=== PATIENT | female | born 1990 | race Asian ===

== ENCOUNTER → 2022-12-16 08:34 | Outpatient (CLI) | payer OTHER, MEDICAID, SELFPAY ==
[2022-12-16 10:13] LABS: Add Manual Diff / Slide Review NO; Basophils Absolute Auto 0 /uL (0-100); Basophils Percent Auto 0.4 % (0-2); Eosinophils Absolute Auto 200 /uL (0-450); Eosinophils Percent Auto 2.2 % (2-4); Hematocrit 42.6 % (36-46); Hemoglobin 14.3 g/dL (12.0-16.0); Lymphocytes Absolute Auto 1900 /uL (1100-4500); Lymphocytes Percent Auto 22.7 % (25-40); Mean Corpuscular HGB Conc 33.5 % (30-36); Mean Corpuscular Hemoglobin 29.2 PG (26-34); Mean Corpuscular Volume 87.3 fL (80-100); Monocytes Absolute Auto 600 /uL (0-900); Monocytes Percent Auto 6.6 % (3-14); Neutrophils Absolute Auto 5700 /uL (1500-7000); Neutrophils Percent Auto 68.1 % (50-75); Platelet Count 306 X10^3/uL (150-400); Red Blood Cell Count 4.88 X10^6/uL (4.0-5.2); White Blood Cell Count 8.4 X10^3/uL (4.5-11.0)
[2022-12-16 14:03] LABS: Hepatitis B Surface Antigen NEGATIVE s/c (NEGATIVE)
[2022-12-16 14:20] LABS: HIV 1 & 2 Ab/Ag 4th Gen Combo NEGATIVE (NEGATIVE); Hep C Virus Ab w/Reflex Quant NEGATIVE s/c (NEGATIVE)
[2022-12-17 02:57] LABS: x Labcorp Estim. Avg Glu (eAG) 114 mg/dL (.); x Labcorp Hemoglobin A1c 5.6 % (4.8-5.6)
[2022-12-17 10:34] LABS: Varicella IgG Antibody <135 index (Immune >165)
[2022-12-18 06:32] LABS: RPR Screen Non Reactive (Non Reactive)
== END ==
PROVIDERS: Referring Provider Specialist; Visit Provider Specialist
DX: Z34.00 Encounter for supervision of normal first pregnancy, unspecified trimester (principal)
CPT/HCPCS: 36415; 80055; 83036; 86787; 86803; 86850; 86900; 86901; 87086; 87389; 87491; 87591

== ENCOUNTER → 2023-01-29 09:47 | Outpatient (CLI) | payer OTHER, MEDICAID, SELFPAY ==
[2023-02-03 12:40] LABS: AFP, Serum 35.8 ng/mL (.); Inhibin A, Dimeric 89.15 pg/mL (.); Inhibin A, MoM 0.64 (.); Maternal Weight 173 lbs (.); Number of Fetuses No (.); OSBR Risk 1 IN 10000 (.); Results Report (.); Test Results *Screen Negative* (.); hCG, MoM 0.51 (.); hCG, Serum 17725 mIU/mL (.)
== END ==
PROVIDERS: Referring Provider Family Medicine; Visit Provider Family Medicine
DX: Z34.02 Encounter for supervision of normal first pregnancy, second trimester (principal); Z3A.17 17 weeks gestation of pregnancy
CPT/HCPCS: 36415; 82105; 82677; 84702; 86336

== ENCOUNTER → 2023-03-26 10:57 | Outpatient (CLI) | payer OTHER, MEDICAID, SELFPAY ==
[2023-03-26 13:43] LABS: Add Manual Diff / Slide Review NO; Basophils Absolute Auto 0 /uL (0-100); Basophils Percent Auto 0.3 % (0-2); Eosinophils Absolute Auto 100 /uL (0-450); Eosinophils Percent Auto 1.5 % (2-4); Hematocrit 39.4 % (36-46); Hemoglobin 13.2 g/dL (12.0-16.0); Lymphocytes Absolute Auto 2300 /uL (1100-4500); Lymphocytes Percent Auto 26.1 % (25-40); Mean Corpuscular HGB Conc 33.4 % (30-36); Mean Corpuscular Hemoglobin 29.4 PG (26-34); Monocytes Absolute Auto 500 /uL (0-900); Monocytes Percent Auto 5.2 % (3-14); Neutrophils Absolute Auto 6000 /uL (1500-7000); Neutrophils Percent Auto 66.9 % (50-75); Platelet Count 310 X10^3/uL (150-400); Red Blood Cell Count 4.48 X10^6/uL (4.0-5.2); Red Cell Distribution Width 13.7 % (11.6-14.8); White Blood Cell Count 8.9 X10^3/uL (4.5-11.0)
[2023-03-26 14:12] LABS: BUN Creatinine Ratio 7.8 (6-22); Blood Urea Nitrogen 4 mg/dL (7-17); Calcium 9.2 mg/dL (8.4-10.2); Carbon Dioxide 23 mmol/L (22-32); Chloride 105 mmol/L (98-107); Estimated Glomerular Filt Rate > 60 mL/min (>60); GTT (PREG) 1 Hour PP 50gm Dose 138 mg/dL (76-139); Glucose 138 mg/dL (70-100); HEMOLYSIS < 15 (0-50); Potassium 3.6 mmol/L (3.4-5.1); Sodium 136 mmol/L (137-145)
[2023-04-03 13:10] LABS: Total Bile Acids 1.1 umol/L (.); Ursodeoxycholic Acids <0.10 umol/L (.)
== END ==
PROVIDERS: Referring Provider Family Medicine; Visit Provider Family Medicine
DX: R73.03 Prediabetes (principal); D50.9 Iron deficiency anemia, unspecified; E66.9 Obesity, unspecified; Z34.00 Encounter for supervision of normal first pregnancy, unspecified trimester
CPT/HCPCS: 36415; 80048; 82542; 82950; 85025

== ENCOUNTER → 2023-05-28 10:43 | Outpatient (CLI) | payer OTHER, MEDICAID, SELFPAY ==
[2023-05-28 13:55] LABS: COVID-19 CEPHEID 4-PLEX PCR Negative (Negative); Influenza A - CEPHEID Flu A NEGATIVE (NEGATIVE); Influenza B - CEPHEID Flu B NEGATIVE (NEGATIVE); Respiratory Syncytial Virus Negative (Negative)
[2023-05-28 17:06] LABS: Creatinine Urine Random 33.9 mg/dL; Protein (Total) Urine Random 20 mg/dL (0-12); Protein Creatinine Ratio Urine 0.58 GRAM/24H
== END ==
PROVIDERS: PCP Family Medicine; Visit Provider Family Medicine
DX: O16.3 Unspecified maternal hypertension, third trimester (principal); O99.891 Other specified diseases and conditions complicating pregnancy; R05.9 Cough, unspecified
CPT/HCPCS: 0241U; 82570; 84156

== ENCOUNTER → 2023-05-28 10:48 | Outpatient (CLI) | payer OTHER, MEDICAID, SELFPAY ==
[2023-05-28 11:57] LABS: Add Manual Diff / Slide Review NO; Basophils Absolute Auto 0 /uL (0-100); Basophils Percent Auto 0.3 % (0-2); Eosinophils Absolute Auto 100 /uL (0-450); Eosinophils Percent Auto 1.4 % (2-4); Hemoglobin 12.7 g/dL (12.0-16.0); Lymphocytes Absolute Auto 1600 /uL (1100-4500); Lymphocytes Percent Auto 14.9 % (25-40); Mean Corpuscular HGB Conc 33.4 % (30-36); Mean Corpuscular Hemoglobin 29.6 PG (26-34); Mean Corpuscular Volume 88.6 fL (80-100); Monocytes Absolute Auto 700 /uL (0-900); Monocytes Percent Auto 6.2 % (3-14); Neutrophils Absolute Auto 8300 /uL (1500-7000); Neutrophils Percent Auto 77.2 % (50-75); Platelet Count 309 X10^3/uL (150-400); Red Blood Cell Count 4.29 X10^6/uL (4.0-5.2); Red Cell Distribution Width 13.3 % (11.6-14.8); White Blood Cell Count 10.8 X10^3/uL (4.5-11.0)
[2023-05-28 12:11] LABS: Alanine Aminotransferase 15 IU/L (<35); Albumin 3.5 g/dL (3.5-5.0); Albumin Globulin Ratio 0.9 (1.0-2.8); Alkaline Phosphatase 90 U/L (38-126); Aspartate Aminotransferase 20 IU/L (14-36); BUN Creatinine Ratio 11.1 (6-22); Bilirubin Total 0.6 mg/dL (0.2-1.3); Blood Urea Nitrogen 5 mg/dL (7-17); Calcium 9.2 mg/dL (8.4-10.2); Carbon Dioxide 23 mmol/L (22-32); Chloride 107 mmol/L (98-107); Estimated Glomerular Filt Rate > 60 mL/min (>60); Globulin 3.8 g/dL (1.7-4.1); Glucose 100 mg/dL (70-100); HEMOLYSIS < 15 (0-50); Potassium 2.9 mmol/L (3.4-5.1); Sodium 137 mmol/L (137-145); Total Protein 7.3 g/dL (6.3-8.2)
== END ==
PROVIDERS: PCP Family Medicine; Referring Provider Family Medicine; Visit Provider Family Medicine
DX: O09.893 Supervision of other high risk pregnancies, third trimester (principal); O16.3 Unspecified maternal hypertension, third trimester; O99.891 Other specified diseases and conditions complicating pregnancy; R73.03 Prediabetes; O99.013 Anemia complicating pregnancy, third trimester; D50.9 Iron deficiency anemia, unspecified; Z28.39 Other underimmunization status
CPT/HCPCS: 0241U; 36415; 80053; 82570; 84156; 85025

== ENCOUNTER → 2023-06-11 10:37 | Outpatient (CLI) | payer OTHER, MEDICAID, SELFPAY ==
[2023-06-12 08:43] LABS: Strep Grp B PCR NEG for Grp B Strep
== END ==
PROVIDERS: PCP Family Medicine; Visit Provider Family Medicine
DX: O16.3 Unspecified maternal hypertension, third trimester (principal)
CPT/HCPCS: 87653

== ENCOUNTER 2023-06-11 11:02 | Observation (INO) | payer OTHER, MEDICAID, SELFPAY ==
[2023-06-11 11:46] LABS: Add Manual Diff / Slide Review NO; Basophils Absolute Auto 0 /uL (0-100); Basophils Percent Auto 0.5 % (0-2); Eosinophils Absolute Auto 100 /uL (0-450); Eosinophils Percent Auto 1.6 % (2-4); Hematocrit 39.7 % (36-46); Hemoglobin 13.3 g/dL (12.0-16.0); Lymphocytes Absolute Auto 1800 /uL (1100-4500); Lymphocytes Percent Auto 21.1 % (25-40); Mean Corpuscular HGB Conc 33.4 % (30-36); Mean Corpuscular Hemoglobin 29.4 PG (26-34); Monocytes Absolute Auto 500 /uL (0-900); Monocytes Percent Auto 6.1 % (3-14); Neutrophils Absolute Auto 5900 /uL (1500-7000); Neutrophils Percent Auto 70.7 % (50-75); Platelet Count 306 X10^3/uL (150-400); Red Blood Cell Count 4.52 X10^6/uL (4.0-5.2); Red Cell Distribution Width 13.3 % (11.6-14.8); White Blood Cell Count 8.4 X10^3/uL (4.5-11.0)
[2023-06-11 11:58] LABS: Aspartate Aminotransferase 27 IU/L (14-36); BUN Creatinine Ratio 8.9 (6-22); Blood Urea Nitrogen 4 mg/dL (7-17); Estimated Glomerular Filt Rate > 60 mL/min (>60); Uric Acid 5.5 mg/dL (2.5-6.2)
[2023-06-11 15:37] LABS: Protein (Total) Urine Random 23 mg/dL (0-12); Protein Creatinine Ratio Urine 0.43 GRAM/24H
== END 2023-06-11 13:15 | disposition home or self-care (01) ==
PROVIDERS: Admitting Provider Family Medicine; PCP Family Medicine; Referring Provider Family Medicine; Visit Provider Family Medicine
DX: O47.03 False labor before 37 completed weeks of gestation, third trimester (principal); Z3A.36 36 weeks gestation of pregnancy; O16.3 Unspecified maternal hypertension, third trimester
CPT/HCPCS: 36415; 59025; 82570; 84156; 84450; 84550; 85025; 87653; G0378; G0379

== ENCOUNTER → 2023-06-16 15:10 | Outpatient (CLI) | payer OTHER, MEDICAID, SELFPAY ==
--- NOTE | 2023-06-16 15:11 | DI.US.S_ITS ---
PROCEDURE: US OB LIMITED INDICATIONS: growth, presentation, placenta location, BREE OUTSIDE/PRIOR DATING DATA: Last menstrual period (LMP): 10/01/2022. LMP-based estimated date of delivery (LESLIE): 07/08/2023. First dating scan (date and location): 12/16/2022. Estimated date of delivery (LESLIE) from first dating scan: Not available. The calculations are made using the working LESLIE of 07/08/2023. TECHNIQUE: Real-time scanning was performed of the fetus, with image documentation and biometric measurements. Biophysical profile was also obtained. COMPARISON: US, US OB <= 14 WEEKS FETUS, 12/16/2022, 8:22. FINDINGS: General: A single living intrauterine gestation is present. Presentation: Vertex. Placenta: Placental position is posterior , without previa. Amniotic fluid index: 12.3 cm, normal range is 5-24 cm. Single deepest vertical pocket is 4.3 cm. heart rate: 150 beats per minute. Maternal cervical canal: Not visualized. biometrics: Biparietal diameter: 36 weeks 0 day Head circumference: 35 weeks 1 day Abdominal circumference: 36 weeks 3 days Femur length: 34 weeks 5 days Clinically estimated gestational age: 36 weeks 6 days Composite gestational age from present scan: 35 weeks 4 days Estimated weight and percentile: 2777 g; 28% for gestational age IMPRESSION: 1. A single living intrauterine gestation with interval within normal limits. 2. The estimated weight is 28% for gestational age. 3. Normal BREE. 4. Fetus in vertex presentation. We strive to produce accurate, complete, and clear reports of imaging services. To assist us in improving patient care, this report was composed using standard report templates and voice recognition software. Therefore, it may contain abnormal punctuation, insertions and/or omissions. Occasional wrong-word or sound-alike substitutions may occur. Though we review the report and make efforts to correct it, we do recommend that the report be read carefully in proper context to recognize any text inaccuracies. Measurement variability for biometric dating: +/- 7 days from 14 weeks to 15 weeks 6 days gestation, +/- 10 days from 16 weeks to 21 weeks 6 days gestation, +/- 2 weeks from 22 weeks to 27 weeks 6 days gestation, +/- 3 weeks for 28 weeks gestation or later. weight reference: 4500 g or EFW >90/95% is considered macrosomia or large for gestational age. EFW <10% is small for gestational age. EFW 5% or less is considered intra-uterine growth restriction.>> Dictated by: Denny Lu M.D. on 06/16/2023 at 16:55 Approved by: Denny Lu M.D. on 06/17/2023 at 8:52
== END ==
LOC: US 15:10
PROVIDERS: PCP Family Medicine; Referring Provider Family Medicine; Visit Provider Family Medicine
DX: O14.03 Mild to moderate pre-eclampsia, third trimester (principal); Z3A.35 35 weeks gestation of pregnancy
CPT/HCPCS: 76815

== ENCOUNTER 2023-06-18 16:54 | Inpatient (IN) | payer OTHER, MEDICAID, SELFPAY ==
[2023-06-18 17:39] VITALS: BP 144/87
[2023-06-18 17:46] LABS: Add Manual Diff / Slide Review NO; Basophils Absolute Auto 100 /uL (0-100); Eosinophils Absolute Auto 100 /uL (0-450); Hematocrit 41.8 % (36-46); Hemoglobin 14.1 g/dL (12.0-16.0); Lymphocytes Absolute Auto 2700 /uL (1100-4500); Lymphocytes Percent Auto 27.8 % (25-40); Mean Corpuscular HGB Conc 33.7 % (30-36); Mean Corpuscular Hemoglobin 29.2 PG (26-34); Mean Corpuscular Volume 86.7 fL (80-100); Monocytes Absolute Auto 800 /uL (0-900); Monocytes Percent Auto 8.8 % (3-14); Neutrophils Absolute Auto 5900 /uL (1500-7000); Neutrophils Percent Auto 61.4 % (50-75); Platelet Count 316 X10^3/uL (150-400); Red Blood Cell Count 4.83 X10^6/uL (4.0-5.2); Red Cell Distribution Width 13.8 % (11.6-14.8); White Blood Cell Count 9.6 X10^3/uL (4.5-11.0)
[2023-06-18 18:01] LABS: Alanine Aminotransferase 34 IU/L (<35); Albumin 3.9 g/dL (3.5-5.0); Alkaline Phosphatase 119 U/L (38-126); Aspartate Aminotransferase 34 IU/L (14-36); BUN Creatinine Ratio 13.2 (6-22); Bilirubin Total 0.7 mg/dL (0.2-1.3); Blood Urea Nitrogen 7 mg/dL (7-17); Calcium 9.4 mg/dL (8.4-10.2); Carbon Dioxide 25 mmol/L (22-32); Chloride 104 mmol/L (98-107); Estimated Glomerular Filt Rate > 60 mL/min (>60); Globulin 4.1 g/dL (1.7-4.1); Glucose 92 mg/dL (70-100); HEMOLYSIS < 15 (0-50); Potassium 3.5 mmol/L (3.4-5.1); Sodium 137 mmol/L (137-145)
[2023-06-18] MEDS: miSOPROStoL 25 MCG TABLET VAG (18:30)
[2023-06-18 20:19] VITALS: BP 177/93; PULSE 89
[2023-06-18] MEDS: LABETALOL 20 MG/4 ML SYRINGE IV (20:19)
[2023-06-18 20:34] VITALS: BP 140/76; PULSE 102
[2023-06-18 21:10] VITALS: BP 158/91; PULSE 87
[2023-06-18] MEDS: LABETALOL 100 MG TABLET 200 MG PO (21:10)
[2023-06-18] MEDS: miSOPROStoL 25 MCG TABLET 50 MCG SL (22:35)
--- NOTE | 2023-06-18 22:35 | P.HPOB_ITS ---
OB HPI Date/Time Date of admission: 06/18/23 Date Patient Seen: 06/18/23 Time Patient Seen: 18:35 History of Present Condition Chief complaint: L&D Date of Last Menstrual Period: 10/01/22 LESLIE Calculator 2 Estimated Delivery Date Method Current WG Current Estimate 07/08/23 LMP (Certain) 37w 3d Other Estimates 07/13/23 Ultrasound #1 36w 5d 07/09/23 Ultrasound #2 37w 2d Estimated Gestational Age (weeks): 37+1 : 1 Para: 1 Narrative: 33yo G1 presents for mIOL due to pre-eclampsia w/o severe features. Developed moderate range BP starting at GA 34+1 which have persisted since that time. Denies DOE, vision change, SOB, RUQ pain, edema. Labs notable for urine protein/Cr 0.58, platelets and liver enzymes wnl. also c/b maternal obesity, varicella non-immune status. care: good care Dating criteria OB: LMP confirmed by 1st trimester US Ultrasounds: normal 1st trimester US and normal mid trimester US Obstetrical complications: preeclampsia Medical complications OB: none Indications Indication for induction OB: gestational HTN/pre-eclampsia Preadmission Labs Last OB Lab Results: 2 Blood Type AB Positive 06/18/23 17:20 Antibody Screen Negative 06/18/23 17:20 Hematocrit 35.4 % (36-46) L 06/20/23 07:39 Hemoglobin 11.6 g/dL (12.0-16.0) L 06/20/23 07:39 Hepatitis B Surface Antigen Negative s/c (NEGATIVE) 12/16/22 08 :39 Hepatitis C Antibody Negative s/c (NEGATIVE) 12/16/22 08:39 Rubella Antibody 69.0 IU/mL (>15) 12/16/22 08:39 Varicella-Zoster IgG Antibody <135 index (Immune >165) L 08:39 Glucose 1 Hour 138 mg/dL (76-139) 03/26/23 12:27 Group B Streptococcus (PCR) Neg for grp b strep 06/11/23 10:37 Glucose Tolerance Testin hr -: Chlamydia screen: negative and Gonorrhea screen: negative -: PAP smear: Normal Genetic Screens: Quad screen: Normal Evaluation Evaluation Baseline heart rate: 140 Variability: Moderate (11-25) monitor accelerations: Present Monitor Decelerations: Absent Category of Tracing: Reactive Status: Category l Dilation (cm): 1 Effacement (%): 50 station: -3 Position of cervix: mid Consistency: firm PFSH Surgical History (Updated 12/11/22 @ 14:43 by Maribel Bentley RN) No pertinent past surgical history Family History (Updated 02/25/23 @ 19:33 by Hannah Juni) Father Hypertension Gout Carpal tunnel syndrome Hyperlipidemia Mother Iron deficiency anemia Gout Hypertension GERD (gastroesophageal reflux disease) Grandfather Prostate cancer Grandmother Asthma Lung cancer Grandfather Cancer Prostate cancer Family/Other Gout Hypertension Brother Gout Hypertension Sister Hyperlipidemia Social History marital status: number of children: 0 household members: spouse and family (sister and parents) lives independently: Yes caregiver/support person: No housing: house pets and animals: No education level: college (some college) 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) current occupational exposures/hazards: No special marlyn needs: No travel history: recent (cruise to [place] and [place]) seatbelt use: always water heater temp set < 120 deg: Yes working smoke detector in home: Yes fire extinguisher in home: Yes carbon monox detector in home: Yes firearms in home: Yes firearms unloaded and locked: Yes do you feel safe at home: Yes Smoking Status: Never smoker Tobacco: How many years used: 6 second hand exposure: Yes (father vapes) alcohol intake: former (2-3/week when not ) substance use type: does not use during the past year weight has: remained stable well-balanced diet: daily or most days daily servings fruits/ve or more times/day caffeine: Yes (AM cup coffee) Type(s) of exercise: none Meds Home Medications and Allergies Home Medications Medication Instructions Recorded Confirmed Type calcium carbonate 200 mg calcium 200 mg PO QID PRN Acid Reflux 12/11/22 06/18/23 History (500 mg) chewable tablet (Tums) vit no.95-ferrous 1 tab PO DAILY 12/11/22 06/18/23 History fumarate 28 mg-folic acid 800 mcg tablet ( Multivitamins) labetalol 200 mg tablet 200 mg PO BID #30 tabs 06/20/23 Rx Allergies Allergy/AdvReac Type Severity Reaction Status Date / Time No Known Drug Allergies Allergy Unverified 06/18/23 10:13 Review of Systems Review of Systems ROS: Yes All systems reviewed with the patient and are negative except as otherwise documented OB Exam Narrative Exam Narrative: General: Well-nourished, no distress HEENT: Normocephalic, EOMI, external ears and nose normal appearing, moist membranes CV: RRR, normal S1 S2, no m/g/r Resp: CTAB Abd: Gravid, soft, NTND, +BS Ext: Full ROM, no edema Skin: No rash or lesions Neuro: A&O x3, normal tone, no focal deficits Psych: Appropriate mood and affect Objective Labs 06/20/23 07:39 06/20/23 07:39 Labs: Laboratory Results - last 24 hr 06/18/23 17:20 WBC 9.6 RBC 4.83 Hgb 14.1 Hct 41.8 MCV 86.7 MCH 29.2 MCHC 33.7 RDW 13.8 Plt Count 316 Neut % (Auto) 61.4 Lymph % (Auto) 27.8 [place] % (Auto) 8.8 Eos % (Auto) 1.0 L Baso % (Auto) 1.0 Neut # (Auto) 5900 Lymph # (Auto) 2700 [place] # (Auto) 800 Eos # (Auto) 100 Baso # (Auto) 100 Sodium 137 Potassium 3.5 Chloride 104 Carbon Dioxide 25 BUN 7 Creatinine 0.53 Estimated GFR > 60 BUN/Creatinine Ratio 13.2 Glucose 92 Calcium 9.4 Total Bilirubin 0.7 AST 34 ALT 34 Alkaline Phosphatase 119 Total Protein 8.0 Albumin 3.9 Globulin 4.1 Albumin/Globulin Ratio 1.0 Blood Type AB Positive Antibody Screen Negative Assessment and Plan Assessment and Plan Assessment and Plan narrative: 33yo G1 at GA 37+1 weeks here for mIOL due to mild pre-eclampsia. complicated by obesity, varicella non-immune status. She did have one severe range BP on admission that resolved with labetalol 20mg IV. -admit to L&D -cervical ripening with misoprostol q4h -labetalol 200mg PO BID -IV labetalol/hydralazine prn per protocol -GBS neg, ppx not indicated -pain control prn if desired by patient -PPH risk low -VTE risk low, SCDs with epidural -anticipate vaginal delivery Time Spent with Patient Total time spent with greater than 50% in coordination of care (as documented) at patient's floor/unit and/or counseling patient:: 15-24 minutes
[2023-06-19] MEDS: miSOPROStoL 25 MCG TABLET 50 MCG SL (02:27)
[2023-06-19 07:09] VITALS: BP 171/99; PULSE 87
[2023-06-19] MEDS: LABETALOL 20 MG/4 ML SYRINGE IV ×3 (07:09→19:10)
[2023-06-19] MEDS: LACTATED RINGERS 1,000 ML 100 ML IV ×2 (09:28→13:38)
[2023-06-19] MEDS: OXYTOCIN PREMIX 30 UNIT/500 ML PLAST..BAG IV (09:28)
[2023-06-19 09:29] VITALS: BP 142/91; PULSE 85
[2023-06-19] MEDS: LABETALOL 100 MG TABLET 200 MG PO ×2 (09:29→21:14)
[2023-06-19] MEDS: FENT 2MCG/ML BUPIV 0.125% EPI 200 MCG/100 ML PLAST..BAG 6 MCG EPIDURAL (13:37)
--- NOTE | 2023-06-19 13:50 | PM.AN.REGBLK ---
Regional Block Pre-procedure Procedure: Continuous Lumbar Epidural for L&D Attending OB provider: Gio Irizarry PMH/ROS narrative: 33yo healthy female 37weeks gestation. Hx: No personal or family history of anesthesia problems. PSH/Anesthesia history narrative: No PSH ASA Class: II Labs: Hct 41.8 % (36-46) 06/18/23 17:20 Plt Count 316 X10^3/uL (150-400) 06/18/23 17:20 Medications: Current Medications Generic Name Dose Route Start Last Admin Trade Name Freq PRN Reason Stop Dose Admin Calcium Carbonate 1,000 mg 06/18/23 16:56 Calcium Carbonate 500 Mg Tab PO Q4HR PRN Dyspepsia Carboprost Tromethamine 250 mcg 06/18/23 16:56 Carboprost 250 Mcg/Ml Ampul IM Q90M PRN Bleeding Diphenhydramine HCl 25 mg 06/19/23 12:30 Diphenhydramine 50 Mg/Ml Vial IV Q10M PRN Pruritis Ephedrine Sulfate 5 mg 06/19/23 12:30 Ephedrine 50 Mg/Ml Vial IV Q5M PRN Blood pressure decrease more than 20% of baseline. Fentanyl 50 mcg 06/18/23 16:56 Fentanyl 100 Mcg/2 Ml Inj IV Q1H PRN Pain, Moderate (4-6) Hydralazine HCl 5 mg 06/18/23 20:00 Hydralazine 20 Mg/Ml Vial IV NOW PRN SBP>= 160 or DBP >=110 Protocol Lactated Ringer's 1,000 mls @ 100 mls/hr 06/18/23 17:00 06/19/23 13:38 Lactated Ringers IV 100 mls/hr CONT WANDA Administration Oxytocin/Lactated Ringer's 30 unit in 500 mls @ 2 mls/hr 06/18/23 17:00 06/19/23 09:28 Oxytocin Premix IV 2 milliunit/min TITRATE WANDA 2 mls/hr Administration Protocol 2 MILLIUNIT/MIN Oxytocin/Lactated Ringer's 30 unit in 500 mls @ 200 mls/hr 06/18/23 16:56 Oxytocin Premix IV CONT PRN Bleeding Protocol Tranexamic Acid 1,000 mg/ 100 mls @ 200 mls/hr 06/18/23 16:56 Sodium Chloride IV NOW PRN Bleeding FENT 2MCG/ML BUPIV 0.125% EPI 200 mcg in 100 mls @ 6 mls/hr 06/19/23 12:30 06/19/23 13:37 Fentanyl/Bupiv/Ns 2mcg/Ml - 0.125% EPIDURAL 6 mls/hr CONT WANDA Administration Labetalol HCl 20 mg 06/18/23 20:00 06/19/23 07:09 Labetalol 20 Mg/4 Ml Syringe IV 20 mg NOW PRN Administration SBP>= 160 or DBP >=110 Protocol Labetalol HCl 200 mg 06/18/23 20:48 06/19/23 09:29 Labetalol 100 Mg Tablet PO 200 mg BID WANDA Administration Lidocaine HCl 20 ml 06/18/23 16:56 Lidocaine 1% 20 Ml INJ INTRA-OP PRN Post Delivery Methylergonovine Maleate 0.2 mg 06/18/23 16:56 Methylergonovine 0.2 Mg/Ml Vial IM NOW PRN Bleeding Methylergonovine Maleate 0.2 mg 06/18/23 16:56 Methylergonovine 0.2 Mg Tablet PO Q6HR PRN Heavy Bleeding Misoprostol 25 mcg 06/18/23 17:00 06/18/23 18:30 Misoprostol 25 Mcg Tablet VAG 25 mcg Q4H WANDA Administration Misoprostol 400 mcg 06/18/23 16:56 Misoprostol 200 Mcg Tablet SL NOW PRN Bleeding Misoprostol 800 mcg 06/18/23 16:56 Misoprostol 200 Mcg Tablet SC NOW PRN Bleeding Misoprostol 50 mcg 06/18/23 20:15 06/19/23 02:27 Misoprostol 25 Mcg Tablet SL 50 mcg Q4H WANDA Administration Nalbuphine HCl 2.5 mg 06/19/23 12:30 Nalbuphine 20 Mg/Ml Ampul IV Q10M PRN Pruritis Naloxone HCl 0.2 mg 06/18/23 16:56 Naloxone 0.4 Mg/Ml Vial IV Q2MIN PRN Opiate Reversal Naloxone HCl 0.4 mg 06/19/23 12:33 Naloxone 0.4 Mg/Ml Vial IV Q2MIN PRN Opiate Reversal Nifedipine 10 mg 06/18/23 20:00 Nifedipine 10 Mg Capsule PO NOW PRN SBP>= 160 or DBP >=110 Protocol Ondansetron HCl 4 mg 06/18/23 16:56 Ondansetron 4 Mg/2 Ml Inj IV Q4HR PRN Nausea And Vomiting Oxytocin 10 unit 06/18/23 16:56 Oxytocin 10 Unit/Ml Vial IM NOW PRN Bleeding Allergies: Allergies Allergy/AdvReac Type Severity Reaction Status Date / Time No Known Drug Allergies Allergy Unverified 06/18/23 10:13 Procedure Insertion date: 06/19/23 Insertion time: 12:06 Prep/Local: betadine x3 and 1% lidocaine Interspace: L3-L4 Patient position: sitting Needle: 18 gauge Hustead Loss of resistance with: saline (+Air) LUCAS at (cm): 6 Catheter placed at SKIN (cm): 14 Catheter in SPACE (cm): 8 Insertion: No CSF, No Blood, No Paresthesia with insertion, No Paresthesia with injection and No Test dose reaction Initial Medications TEST DOSE time: 12:07 BOLUS DOSE time: 12:08 BOLUS DOSE (mL): 7 BOLUS DOSE med: other (2% Lidocaine) Infusion INFUSION: 0.125% bupivacaine and with fentanyl 2 mcg/mL Initial rate (mL/hr): 6 Subsequent interventions: Continuous rate: 6ml/hr, PCEA dose: 5ml, Lockout: 20min, 1hr limit: 21. Post-procedure Anesthesia date START: 06/19/23 Anesthesia time START: 11:55 Anesthesia date END: 06/19/23 Anesthesia time END: 15:27 Post-procedure Anesthesia Assessment: Yes CV function: HR/BP stable, Yes Resp function: RR/sat/airway adequate, Yes Post-op hydration adequate, Yes Pain control adequate, Yes Nausea & vomiting absent, Yes Temperature > 36 C, Yes Mental status appropriate and Yes Anesthesia complications
[2023-06-19 16:47] VITALS: BP 160/80; PULSE 112
--- NOTE | 2023-06-19 17:10 | PM.OBPRVD ---
Events: Pre-Eclampsia and Labor Induction Labor & Delivery Delivery date: 06/19/23 Cervical ripening method: per misoprostal protocol Delivery augmentation: pitocin Delivery monitor: external FHT and external uterine Route of delivery: L&D Laceration Description: Perineal - 2nd Degree and Vaginal - 1st Degree Delivery repair: vicryl Estimated blood loss (mL): 400 Anesthesia Type: Epidural Narrative: Patient fully dilated at 1448 and began pushing at 1503. Spontaneous vaginal delivery of a viable female infant in the GIOVANNI position occurred at 1527. The was suctioned and stimulated at the perineum, and gave appropriate cry with movement of all extremities. Delayed cord clamping was observed for 60 seconds. The cord was clamped and cut, and the handed to mother for skin to skin. Cord blood and segment were obtained. The placenta was delivered without difficulty using gentle cord traction and found to be intact with a three-vessel cord. After fundal massage the uterus was firm and bleeding stopped. The vagina and cervix were examined for lacerations. Second-degree perineal and first-degree vaginal lacerations were noted and repaired with 3-0 Vicryl suture in the usual fashion. Patient stable. Baby 1: Infant gender: Female Presentation: vertex Position: Right Occiput Anterior Placenta delivery description: Spontaneous Cord Vessel Description: 3 Vessels score (1 min): 9 score (5 min): 9 weight: 6 lb 8.834 oz Plan for aftercare: Routine care
[2023-06-19 19:10] VITALS: BP 153/92; PULSE 97
[2023-06-19 19:50] VITALS: BP 125/75; PULSE 96
[2023-06-19] MEDS: DERMOPLAST SPRAY 20% 60 ML 1 SPRAY TOP (21:14)
[2023-06-19] MEDS: ACETAMINOPHEN 325 MG TABLET 650 MG PO (21:37)
[2023-06-19] MEDS: MAGNESIUM HYDROXIDE 30 ML UDC PO (21:37)
[2023-06-19] MEDS: IBUPROFEN 600 MG TABLET PO (21:38)
[2023-06-20 00:47] LABS: Urine N gonorrhoeae NOT DETECTED
[2023-06-20 00:57] LABS: Urine Chlamydia NOT DETECTED
[2023-06-20] MEDS: ACETAMINOPHEN 325 MG TABLET 650 MG PO ×2 (07:48→13:23)
[2023-06-20] MEDS: IBUPROFEN 600 MG TABLET PO ×2 (07:48→13:23)
[2023-06-20 07:51] LABS: Add Manual Diff / Slide Review NO; Basophils Absolute Auto 100 /uL (0-100); Basophils Percent Auto 0.7 % (0-2); Eosinophils Absolute Auto 100 /uL (0-450); Eosinophils Percent Auto 1.1 % (2-4); Hematocrit 35.4 % (36-46); Hemoglobin 11.6 g/dL (12.0-16.0); Lymphocytes Absolute Auto 3100 /uL (1100-4500); Lymphocytes Percent Auto 26.7 % (25-40); Mean Corpuscular HGB Conc 32.9 % (30-36); Mean Corpuscular Hemoglobin 28.8 PG (26-34); Mean Corpuscular Volume 87.7 fL (80-100); Monocytes Absolute Auto 700 /uL (0-900); Monocytes Percent Auto 6.3 % (3-14); Neutrophils Absolute Auto 7500 /uL (1500-7000); Neutrophils Percent Auto 65.2 % (50-75); Platelet Count 248 X10^3/uL (150-400); Red Blood Cell Count 4.04 X10^6/uL (4.0-5.2); Red Cell Distribution Width 13.6 % (11.6-14.8); White Blood Cell Count 11.5 X10^3/uL (4.5-11.0)
[2023-06-20 08:25] LABS: Alanine Aminotransferase 30 IU/L (<35); Albumin Globulin Ratio 0.9 (1.0-2.8); Alkaline Phosphatase 93 U/L (38-126); Aspartate Aminotransferase 37 IU/L (14-36); BUN Creatinine Ratio 7.6 (6-22); Bilirubin Total 0.7 mg/dL (0.2-1.3); Blood Urea Nitrogen 5 mg/dL (7-17); Calcium 8.9 mg/dL (8.4-10.2); Carbon Dioxide 28 mmol/L (22-32); Chloride 105 mmol/L (98-107); Estimated Glomerular Filt Rate > 60 mL/min (>60); Globulin 3.2 g/dL (1.7-4.1); Glucose 80 mg/dL (70-100); HEMOLYSIS < 15 (0-50); Potassium 3.4 mmol/L (3.4-5.1); Sodium 137 mmol/L (137-145); Total Protein 6.2 g/dL (6.3-8.2)
[2023-06-20 09:05] VITALS: BP 130/77; PULSE 88
[2023-06-20] MEDS: DOCUSATE 100 MG CAPSULE PO (09:05)
[2023-06-20] MEDS: LABETALOL 100 MG TABLET 200 MG PO (09:05)
[2023-06-20] MEDS: PRENATAL VIT,CALC/IRON/FOLIC 1 TABLET 1 TAB PO (09:05)
--- NOTE | 2023-06-20 19:05 | PM.OBDS.1 ---
Discharge Providers Provider Date of admission: 06/18/23 16:54 Discharge Date: 06/20/23 Primary care physician: Karan Ashby MD Discharge provider: Karan Ashby MD Summary Hospital Course Date Patient Seen: 06/20/23 Time Patient Seen: 13:00 Diagnoses: Preeclampsia without severe features Obesity affecting Varicella nonimmune Hospital Course: 33yo G1 presents for mIOL due to pre-eclampsia w/o severe features. Developed moderate range BP starting at GA 34+1 which have persisted since that time. Denies DOE, vision change, SOB, RUQ pain, edema. Labs notable for urine protein/Cr 0.58, platelets and liver enzymes wnl. also c/b maternal obesity, varicella non-immune status. Induction proceeded with cervical ripening overnight 06/18 and was noted to Harding score of 9 the morning of 06/19, at which point she was transitioned to Pitocin. She had spontaneous rupture of membranes at 11:27 a.m., was noted to be fully dilated at 2:48 p.m. and began pushing at 3:03 p.m. Spontaneous vaginal delivery of viable female infant in the GIOVANNI position occurred at 3:27 p.m. Her course was notable for one severe range blood pressure which normalized with IV labetalol. Started on labetalol 200 mg b.i.d. and blood pressure remained adequately controlled thereafter. At time of discharge patient ambulating, voiding, stooling, eating without difficulty. She is scheduled for BP check in clinic next week. Time Spent with Patient Time attestation: Total time spent providing and/or coordinating discharge services: Objective Labs 06/20/23 07:39 06/20/23 07:39 Labs: Laboratory Results - last 24 hr 06/19/23 06/20/23 21:45 07:39 WBC 11.5 H RBC 4.04 Hgb 11.6 L Hct 35.4 L MCV 87.7 MCH 28.8 MCHC 32.9 RDW 13.6 Plt Count 248 Neut % (Auto) 65.2 Lymph % (Auto) 26.7 [place] % (Auto) 6.3 Eos % (Auto) 1.1 L Baso % (Auto) 0.7 Neut # (Auto) 7500 H Lymph # (Auto) 3100 [place] # (Auto) 700 Eos # (Auto) 100 Baso # (Auto) 100 Sodium 137 Potassium 3.4 Chloride 105 Carbon Dioxide 28 BUN 5 L Creatinine 0.66 Estimated GFR > 60 BUN/Creatinine Ratio 7.6 Glucose 80 Calcium 8.9 Total Bilirubin 0.7 AST 37 H ALT 30 Alkaline Phosphatase 93 Total Protein 6.2 L Albumin 3.0 L Globulin 3.2 Albumin/Globulin Ratio 0.9 L Ur Chlamydia DNA (PCR) Not detected N gonorrhoeae DNA (PCR) Not detected Exam Narrative Exam Narrative: General: Well-nourished, no distress HEENT: Normocephalic, EOMI, external ears and nose normal appearing, moist membranes CV: RRR, normal S1 S2, no m/g/r Resp: CTAB Abd: Soft, NTND, fundus firm below umbilicus Lochia: Similar to menses, improved compared to prior Ext: Full ROM, no edema Skin: No rash or lesions Neuro: A&O x3, normal tone, no focal deficits Psych: Appropriate mood and affect Discharge Plan Discharge Plan Patient Disposition: Home Discharge orders & Medications Prescriptions: New labetalol 200 mg tablet 200 mg PO BID Qty: 30 0RF Continued PNV cmb#95-ferrous fumarate-FA [ Multivitamins] 28 mg iron- 800 mcg tablet 1 tab PO DAILY calcium carbonate [Tums] 200 mg calcium (500 mg) tablet,chewable 200 mg PO QID PRN (Reason: Acid Reflux) Follow up/Referrals: Karan Ashby MD [Primary Care Provider] - 6 Weeks (You have a 6 week follow up appointment with Dr Ashby on July 31 at 1030am. ) Visit Report/Discharge Packet Stand Alone Forms: Discharge: Care, Patient Portal/API, Stroke Signs & Symptoms Discharge Data Primary Care Provider: Karan Ashby Discharges patient from system. Discharge Date/Time: 06/20/23 17:42
== END 2023-06-20 17:42 | disposition home or self-care (01) | DRG 560 ==
PROVIDERS: Admitting Provider Family Medicine; PCP Family Medicine; Referring Provider Family Medicine; Visit Provider Family Medicine
DX: O14.04 Mild to moderate pre-eclampsia, complicating childbirth (principal); Z37.0 Single live birth; Z3A.37 37 weeks gestation of pregnancy; O99.214 Obesity complicating childbirth; Z67.30 Type AB blood, Rh positive; O70.1 Second degree perineal laceration during delivery; Z28.39 Other underimmunization status
CPT/HCPCS: 36415; 59050; 59200; 59409; 80053; 85025; 86850; 86900; 86901; 87491; 87591; G0379; J2590

== ENCOUNTER → 2024-06-02 06:57 | Outpatient (CLI) | payer OTHER, SELFPAY ==
--- NOTE | 2024-06-02 06:58 | DI.US.S_ITS ---
PROCEDURE: US PELVIC COMPLETE INDICATIONS: IUD LOCATION. CRAMPING. WEEKLY SPOTTING. TECHNIQUE: Real-time scanning was performed of the pelvic organs, with image documentation. Additional endovaginal scanning was necessary due to incomplete visualization of the adnexal and endometrial structures by transabdominal scanning. COMPARISON: None. FINDINGS: Uterus: Uterus is anteverted and normal in size at 6.6 x 4.6 x 3.7 cm. The myometrium is heterogeneous. The endometrium measures 10 mm combined thickness. IUD centered in the endometrial cavity but at the inferior aspect. Hypoechoic material in the cervix measuring 2.7 x 1.7 x 0.5 cm. No fibroids seen. Ovaries: The right ovary measures 3.6 x 1.9 x 1.7 cm, with a calculated ovarian volume of 6 cc. The left ovary measures 3.5 x 2.8 x 1.4 cm, with a calculated ovarian volume of 7 cc. The ovaries have a normal sonographic appearance. Greater than 12 follicles can be seen in each ovary. No adnexal masses are seen. Other: No pathologic free abdominal or pelvic fluid. Prominent pelvic veins. IMPRESSION: 1. IUD at the lower uterine segment, possibly malposition. Suspect small clot within the cervix measuring 2.7 cm. 2. Greater than 12 ovarian follicles bilaterally. This finding could be seen in the setting of PCOS. 3. Prominent pelvic veins. This finding at could be seen in multiparous women. Pelvic congestion syndrome is also possibility. We strive to produce accurate, complete, and clear reports of imaging services. To assist us in improving patient care, this report was composed using standard report templates and voice recognition software. Therefore, it may contain abnormal punctuation, insertions and/or omissions. Occasional wrong-word or sound-alike substitutions may occur. Though we review the report and make efforts to correct it, we do recommend that the report be read carefully in proper context to recognize any text inaccuracies. Dictated by: Donnell Wong M.D. on 06/02/2024 at 14:42 Approved by: Donnell Wong M.D. on 06/02/2024 at 14:48
[2024-06-02 07:39] LABS: Hematocrit 42.4 % (36-46); Hemoglobin 14.2 g/dL (12.0-16.0); Mean Corpuscular HGB Conc 33.3 % (30-36); Mean Corpuscular Hemoglobin 29.4 PG (26-34); Mean Corpuscular Volume 88.1 fL (80-100); Platelet Count 314 X10^3/uL (150-400); Red Blood Cell Count 4.82 X10^6/uL (4.0-5.2); Red Cell Distribution Width 12.9 % (11.6-14.8); White Blood Cell Count 8.1 X10^3/uL (4.5-11.0)
[2024-06-02 07:44] LABS: Hemoglobin A1C% w Est Avg Glu 5.5 % (4.0-6.0)
[2024-06-02 08:13] LABS: Alanine Aminotransferase 25 IU/L (<35); Albumin 4.4 g/dL (3.5-5.0); Albumin Globulin Ratio 1.2 (1.0-2.8); Alkaline Phosphatase 73 U/L (38-126); Aspartate Aminotransferase 26 IU/L (14-36); BUN Creatinine Ratio 19.4 (6-22); Bilirubin Total 0.7 mg/dL (0.2-1.3); Blood Urea Nitrogen 13 mg/dL (7-17); Calcium 8.8 mg/dL (8.4-10.2); Carbon Dioxide 27 mmol/L (22-32); Chloride 106 mmol/L (98-107); Cholesterol 211 mg/dL (140-199); Estimated Glomerular Filt Rate > 60 mL/min (>60); Globulin 3.7 g/dL (1.7-4.1); Glucose 105 mg/dL (70-100); HDL Cholesterol 36 mg/dL (40-60); HEMOLYSIS < 15 (0-50); LDL Cholesterol Calculated 143 mg/dL (<100); Sodium 140 mmol/L (137-145); Total Protein 8.1 g/dL (6.3-8.2); Triglycerides 158 mg/dL (35-150)
[2024-06-02 08:17] LABS: HEMOLYSIS < 15 (0-50); Iron 61 ug/dL (37-170)
[2024-06-02 08:28] LABS: Percent Iron Saturation 22 % (15-50); Total Iron Binding Capacity 277 ug/dL (265-497); Transferrin 253 mg/dL (206-381)
[2024-06-02 08:47] LABS: Ferritin 51 ng/mL (6-137)
== END ==
LOC: US 06:58
PROVIDERS: PCP Family Medicine; Referring Provider Family Medicine; Visit Provider Family Medicine
DX: R10.9 Unspecified abdominal pain (principal); R73.03 Prediabetes; D50.9 Iron deficiency anemia, unspecified; E66.9 Obesity, unspecified; Z97.5 Presence of (intrauterine) contraceptive device
CPT/HCPCS: 36415; 76830; 76856; 80053; 80061; 82728; 83036; 83540; 83550; 85027